=== PATIENT | female | born 1995 | race Caucasian/White ===

== ENCOUNTER 2018-08-18 08:37 | Emergency (ER) | payer OTHER ==
--- NOTE | 2018-08-18 09:21 | ER Document Report ---
ED Medical Screen (RME) - General Chief Complaint: Nausea/Vomiting Stated Complaint: VOMITING BLOOD TRAVEL OUTSIDE OF THE [place] IN LAST 30 DAYS: No - HPI Notes: 08/18/18 09:20 Patient is a 23-year-old female no significant past medical history who presents complaining of intermittent left lower pelvic abdominal pain for the last few days and having associated nausea and vomiting this morning. Patient states that the vomiting started out is bilious and then dry heaves. Patient states that after dry heaving she did have 2 episodes of having a small amount of blood in her emesis that was bright red. Denies any history of esophageal varices, alcohol abuse, or ulcers. Patient has not vomited this morning, but does continue to be nauseous. She is urinating normally. Last menstrual period was July 10. She has not had any vaginal discharge, odor, or bleeding. Denies BASURTO, fever, neck pain, URI, CP, SOB, diarrhea, or rash. I have treated and performed a rapid initial assessment of this patient. A comprehensive ED assessment and evaluation of the patient, analysis of test results and completion of medical decision making process will be conducted by additional ED providers. PHYSICAL EXAMINATION: GENERAL: Well-appearing, well-nourished and in no acute distress. A&Ox4. Answers questions appropriately. LUNGS: Breath sounds clear to auscultation bilaterally and equal. No wheezes rales or rhonchi. HEART: Regular rate and rhythm without murmurs, rubs, gallops. ABDOMEN: Soft, nondistended abdomen. No guarding, no rebound. Normal bowel sounds present. No CVA tenderness bilaterally. + mild left lower tenderness (cannot elicit thorough abd exam w/o table, however). - Related Data Allergies/Adverse Reactions: pineapple Allergy (Verified 08/18/18 08:41) Physical Exam - Vital signs Vitals: Temp Pulse Resp BP Pulse Ox 98.5 F 94 16 122/66 98 08/18/18 08:47 08/18/18 08:47 08/18/18 08:47 08/18/18 08:47 08/18/18 08:47 Course - Vital Signs Vital signs: Temp Pulse Resp BP Pulse Ox 98.5 F 94 16 122/66 98 08/18/18 08:47 08/18/18 08:47 08/18/18 08:47 08/18/18 08:47 08/18/18 08:47
[2018-08-18 09:28] LABS: APPEARANCE,URINE CLEAR; BILIRUBIN,URINE NEGATIVE (NEGATIVE); COLOR,URINE STRAW; GLUCOSE, URINE NEGATIVE (NEGATIVE); KETONES,URINE NEGATIVE (NEGATIVE); LEUKOCYTE ESTERASE,URINE NEGATIVE (NEGATIVE); NITRITE,URINE NEGATIVE (NEGATIVE); PROTEIN,URINE NEGATIVE (NEGATIVE); URINE SPECIFIC GRAVITY 1.004; UROBILINOGEN,URINE NEGATIVE mg/dL (<2.0)
[2018-08-18] MEDS ORDERED: FAMOTIDINE INJ/PF 20 MG/2 ML SDV IV ONE (09:43)
[2018-08-18] MEDS ORDERED: ONDANSETRON HCL INJ/PF 4 MG/2 ML SDV IV ONE (09:44)
--- NOTE | 2018-08-18 09:46 | ER Document Report ---
ED General - General Chief Complaint: Nausea/Vomiting Stated Complaint: VOMITING BLOOD Time Seen by Provider: 08/18/18 09:41 Primary Care Provider: SONIA PINON MD [ACTIVE STAFF] - Follow up in 1 week Mode of Arrival: Ambulatory Information source: Patient Notes: Patient is a 23-year-old female complaining of intermittent left lower pelvic abdominal pain for the last few days and having associated nausea and vomiting this morning. Patient states that the vomiting started out is bilious and then dry heaves. 2 episodes of having a small amount of blood in her emesis that was bright red. No history of esophageal varices, alcohol abuse, or ulcers. No FH of AVM. Patient has not vomited this morning, but does continue to have nausea. She is urinating normally. Last menstrual period was July 10. She has not had any vaginal discharge, odor, or bleeding. Denies BASURTO, fever, neck pain, URI, CP, SOB, diarrhea, or rash. TRAVEL OUTSIDE OF THE [place] IN LAST 30 DAYS: No - HPI Onset: Yesterday Onset/Duration: Gradual Severity: Mild Associated symptoms: Nausea, Vomiting - Related Data Allergies/Adverse Reactions: pineapple Allergy (Verified 08/18/18 08:41) Past Medical History - General Information source: Patient - Social History Smoking Status: Unknown if Ever Smoked Frequency of alcohol use: None Drug Abuse: None Lives with: Family Family History: Reviewed & Not Pertinent Patient has suicidal ideation: No Patient has homicidal ideation: No - Medical History Medical History: Negative Renal/ Medical History: Denies: Hx Peritoneal Dialysis Review of Systems - Review of Systems Notes: Constitutional: denies: Chills, Diaphoresis, Fever, Malaise, Weakness EENT: denies: Eye discharge, Blurred vision, Tearing, Double vision, Nose congestion, Nose discharge, Throat swelling, Mouth pain Cardiovascular: denies: Palpitations, Heart racing, Orthopnea, Dyspnea, Chest pain Respiratory: denies: Cough, Hurts to breathe, Wheezing, Shortness of breath Gastrointestinal: Complaining of abdominal pain, nausea, vomiting and bright red blood in emesis. Genitourinary: denies: Burning, Dysuria, Discharge, Frequency, Flank pain, Hematuria Musculoskeletal: denies: Joint pain, Joint swelling, Muscle pain, Muscle stiffness, back pain Hematologic/Lymphatic: denies: Anemia, Easy bleeding, Easy bruising, Blood clots Neurological/Psychological: denies: Confusion, Dementia, Depression, Loss of consciousness Skin: No lesions, no masses, no skin breakdown, no abscesses Physical Exam - Vital signs Vitals: Temp Pulse Resp BP Pulse Ox 98.5 F 94 16 122/66 98 08/18/18 08:47 08/18/18 08:47 08/18/18 08:47 08/18/18 08:47 08/18/18 08:47 Interpretation: Normal - General General appearance: Appears well, Alert - HEENT Head: Normocephalic, Atraumatic Eyes: Normal Pupils: PERRL - Respiratory Respiratory status: No respiratory distress Chest status: Nontender Breath sounds: Normal Chest palpation: Normal - Cardiovascular Rhythm: Regular Heart sounds: Normal auscultation Murmur: No - Abdominal Inspection: Normal Distension: No distension Bowel sounds: Normal Tenderness: Nontender Organomegaly: No organomegaly - Back Back: Normal, Nontender - Extremities General upper extremity: Normal inspection, Nontender, Normal color, Normal ROM, Normal temperature General lower extremity: Normal inspection, Nontender, Normal color, Normal ROM, Normal temperature, Normal weight bearing. No: Herbie's sign - Neurological Neuro grossly intact: Yes Cognition: Normal Orientation: AAOx4 [place] Coma Scale Eye Opening: Spontaneous [place] Coma Scale Verbal: Oriented [place] Coma Scale Motor: Obeys Commands [place] Coma Scale Total: 15 Speech: Normal Motor strength normal: LUE, RUE, LLE, RLE Sensory: Normal - Psychological Associated symptoms: Normal affect, Normal mood - Skin Skin Temperature: Warm Skin Moisture: Dry Skin Color: Normal Course - Re-evaluation Re-evalutation: 08/18/18 11:04 Laboratory 08/18/18 09:10 Urine Color STRAW Urine Appearance CLEAR Urine pH 8.0 Ur Specific [place] 1.004 Urine Protein NEGATIVE Urine Glucose (UA) NEGATIVE Urine Ketones NEGATIVE Urine Blood NEGATIVE Urine Nitrite NEGATIVE Urine Bilirubin NEGATIVE Urine Urobilinogen NEGATIVE Ur Leukocyte Esterase NEGATIVE Urine WBC (Auto) 1 Urine RBC (Auto) 0 U Hyaline Cast (Auto) 1 Squamous Epi Cells Auto 1 Urine Ascorbic Acid NEGATIVE 08/18/18 11:23 Transvaginal US 08/18/18 09:18 IMPRESSION: LIVING INTRAUTERINE . EGA 6 weeks 3 days 2 cm left ovary hemorrhagic cyst likely the corpus luteum Trimester of : First - 0 to 13 weeks. 08/18/18 11:23 Ultrasound is reassuring. Has a 6-week 3-day old fetus with a 2 cm left ovarian hemorrhagic cyst likely a corpus luteal cyst. I have explained this to the patient. At this time I do believe patient is stable. Does not need labs. Will DC at this time in stable condition. - Vital Signs Vital signs: Temp Pulse Resp BP Pulse Ox 98.5 F 94 16 122/66 98 08/18/18 08:47 08/18/18 08:47 08/18/18 08:47 08/18/18 08:47 08/18/18 08:47 Discharge - Discharge Clinical Impression: Acute gastritis with bleeding Qualifiers: Gastritis type: unspecified gastritis Qualified Code(s): K29.01 - Acute g astritis with bleeding Qualifiers: Weeks of gestation: less than 8 weeks Qualified Code(s): Z3A.01 - Less than 8 weeks gestation of Condition: Good Disposition: HOME, SELF-CARE Instructions: Gastritis ([facility]), Hyperemesis Gravidarum ([facility]), ([facility]) Additional Instructions: Your baby looks healthy. It has measured out at 6 weeks and 3 days. It is too early to determine what the sex is. This will be done in approximately 10 to 12 weeks. Please make an appointment with [facility] as soon as possible. You may take Tylenol for your pain but do not exceed 3 g in a 24-hour period.. You may take 25 mg of vitamin B6 3 times a day along with any 5 mg of doxylamine 2-3 times a day along with the vitamin B6. I have prescribed you some Zofran that you can use sparingly. In the event that the vitamin B6 and doxylamine is not working and you continue to have vomiting you may use the Zofran. Please follow-up with [facility] as soon as possible. I am also prescribing you some medication to help with the gastritis that you presented with. This is safe in as well. Please take 150 mg of Zantac or 20 mg of Pepcid twice a day. In the event that symptoms are getting worse please return for repeat evaluation. Referrals: SONIA PINON MD [ACTIVE STAFF] - Follow up in 1 week
--- NOTE | 2018-08-18 11:18 | RADIOLOGY REPORT (SQ) ---
EXAM DESCRIPTION: U/S OB TRANSVAG W/DOPPLER COMPLETED DATE/TIME: 08/18/2018 10:34 am REASON FOR STUDY: LL pelvic pain COMPARISON: None. TECHNIQUE: Transvaginal static and realtime grayscale images acquired of the pelvis. Additional maxine cted spectral and color Doppler images recorded. All images stored on PACs. bHCG: None available CLINICAL DATES: 07/10/2018 LIMITATIONS: None. FINDINGS: FETUS: Single Living intrauterine . ULTRASOUND EGA: 6 weeks 3 days ULTRASOUND MALACHI: 04/10/2019 EFW: Not applicable less than 20 weeks. CRL: 0.6 cm FHR: 113 beats per minute. SURVEY: Too early to assess AMNIOTIC FLUID: Adequate amount. PLACENTA: Not yet developed due to early gestation. SUBCHORIONIC BLEED: no SIZE OF BLEED: Not applicable. UTERUS: No masses. No anomalies. Uterus is 9.3 x 6.5 x 5.1 cm in size. Bicornuate uterus. Pregnanc y is in the rightward fundal region CERVICAL LENGTH: 2.7 cm. Closed. RIGHT ADNEXA: Normal ovary with normal vascular flow. Right ovary 4.5 x 3.5 x 2.4 cm in size. No ad nexal free fluid.No adnexal masses. LEFT ADNEXA: Normal ovary with normal vascular flow. Left ovary is 4.2 x 1.9 x 1.9 cm in size with a 2 cm hemorrhagic cyst likely the corpus luteum. No adnexal free fluid. No adnexal masses. FREE FLUID: None. OTHER: No other significant finding. IMPRESSION: LIVING INTRAUTERINE . EGA 6 weeks 3 days 2 cm left ovary hemorrhagic cyst likely the corpus luteum Trimester of : First - 0 to 13 weeks. TECHNICAL DOCUMENTATION: JOB ID: [id number] [employer]- All Rights Reserved rev Reading location - IP/workstation name: [email or web address]
[2018-08-18 12:09] VITALS: BP 120/65
== END 2018-08-18 12:09 | disposition home or self-care (01) ==
LOC: EDBD → ER 08:37
DX: O26.891 Other specified pregnancy related conditions, first trimester (principal); K29.01 Acute gastritis with bleeding; R10.32 Left lower quadrant pain; N83.202 Unspecified ovarian cyst, left side; R10.2 Pelvic and perineal pain; O21.9 Vomiting of pregnancy, unspecified; Z3A.01 Less than 8 weeks gestation of pregnancy
CPT/HCPCS: 76817; 81001; 93976; 99284